=== PATIENT | male | born 1970 | race Native Hawaiian/Other Pacific Islander ===

== ENCOUNTER 2022-07-12 08:38 | Day surgery (SDC) | payer BC ==
[2022-07-12] MEDS ORDERED: Lactated Ringers 1,000 ML IV ONE (08:53)
--- NOTE | 2022-07-12 08:56 | HP ---
DATE OF SURGERY: 07/12/2022 HISTORY OF PRESENT ILLNESS: The patient is a 51-year-old in need of screening colonoscopy. PAST MEDICAL HISTORY: Allergic rhinitis in the past. Migraines in the past. PAST SURGICAL HISTORY: Shoulder surgery in the past. Endoscopy in the past. MEDICATIONS: Pataday ophthalmic solution, patanase nasal spray allergy relief. Claritin, Xyzal taken in the past. ALLERGIES: NAPROSYN. IBUPROFEN. ASPIRIN. LATEX. FAMILY HISTORY: Heart disease, hypertension, hyperlipidemia, diabetes and depression. Brother with colon cancer. SOCIAL HISTORY: No smoking or alcohol abuse. REVIEW OF SYSTEMS: Fourteen systems reviewed. No chest pain or palpitations. Other systems negative or noncontributory as above and per preadmission questionnaire. PHYSICAL EXAMINATION: GENERAL: No acute distress. HEENT: Sclerae nonicteric. EOMI. Oral mucous membranes moist. NECK: No JVD. CHEST: Equal excursion, nonlabored breathing. CVS: Regular rhythm and pulse. ABDOMEN: Soft. EXTREMITIES: No edema on day of procedure. NEURO: Alert. RECTAL: Deferred timed to endoscopy exam. PSYCH: Appropriate mood and affect. SKIN: Dry. IMPRESSION: Need for screening colonoscopy. I feel the patient is a candidate. Risks explained to the patient the day of the procedure including but not limited to bleeding or infection, risk of bowel injury or perforation but not limited to, risk of missed or nondiagnosis or incomplete exam possibly requiring barium enema, other studies or procedures, general risk of anesthesia or sedation, risk of bowel prep but not limited to, consent obtained. Will proceed with outpatient follow up screening colonoscopy.
[2022-07-12] MEDS ORDERED: Lactated Ringers 1,000 ML IV SCH (10:00)
[2022-07-12] MEDS ORDERED: Xylocaine-Mpf 2% 5 Ml Vial ONE (11:24)
[2022-07-12] MEDS ORDERED: SUBLIMAZE 100 MCG/2 ML ONE (11:24)
[2022-07-12] MEDS ORDERED: Versed 2 MG/2 ML Injection ONE (11:24)
[2022-07-12] MEDS ORDERED: DIPRIVAN 200 MG/20 ML IV ONE (11:24)
[2022-07-12 12:44] VITALS: BP 107/71; PULSE 62; O2SAT 97
--- NOTE | 2022-07-13 09:02 | OP ---
SURGERY DATE/TIME: 07/12/2022 1132 PREOPERATIVE DIAGNOSIS: Prior history of polyps, family history of colon cancer, need for follow up screening colonoscopy. POSTOPERATIVE DIAGNOSES: 1) Small early polyps versus hyperplastic lesion ascending, transverse, sigmoid colon. 2) Prep was good to fair. PROCEDURES: 1) Colonoscopy. 2) Hot biopsy polypectomy small early polyps versus hyperplastic lesions ascending colon, transverse colon and sigmoid colon. 3) ASA Class I. 4) Withdrawal time approximately eleven minutes. SURGEON: Dr. Omar Pedersen. ANESTHESIA: MAC. ESTIMATED BLOOD LOSS: Minimal. INDICATIONS: As noted above. Risks and benefits explained in detail but not limited to and consent obtained. DESCRIPTION OF PROCEDURE AND FINDINGS: The patient is taken to the endoscopy room. MAC anesthesia induced. After official time out and no disagreement with planned procedure, digital rectal exam did not reveal any rectal masses. Video colonoscope inserted and passed up through the slightly tortuous sigmoid, descending, transverse and ascending colon around to the cecum. Appendiceal orifice and ileocecal valve well visualized and photo documented. Prep overall was good but fair. There was some liquidy stool but fortunately no solid stool just slightly limiting the exam for very small lesions this is suctioned irrigated out as clear as possible. The scope is slowly and carefully withdrawn over the next eleven minutes. There was a small early polyp versus hyperplastic lesion in the ascending colon removed with hot biopsy forceps. Good hemostasis noted. Another one in the transverse colon removed with hot biopsy polypectomy with brief bursts of cautery. Good hemostasis was noted. A couple of very small early polyps versus hyperplastic lesions in the sigmoid colon removed with hot biopsy forceps with brief bursts of cautery. Good hemostasis noted. The patient tolerated the procedure well. There were no immediate complications. No signs of any large polyps or obstructing lesions. The patient tolerated the procedure well. Findings discussed with the family out in the waiting area.
== END 2022-07-12 12:35 | disposition home or self-care (01) ==
LOC: EDSEX → SDC 08:38
PROVIDERS: ATTEND Surgery
DX: Z12.11 Encounter for screening for malignant neoplasm of colon (principal); Z80.0 Family history of malignant neoplasm of digestive organs; Z09 Encounter for follow-up examination after completed treatment for conditions other than malignant neoplasm; Z86.010 Personal history of colon polyps; D12.5 Benign neoplasm of sigmoid colon; D12.3 Benign neoplasm of transverse colon
CPT/HCPCS: J2250; J2704; J3010